=== PATIENT | male | born 1935 | race Caucasian/White ===

== ENCOUNTER 2016-12-21 07:12 | Day surgery (SDC) | payer MEDICARE ==
[2016-12-21] MEDS ORDERED: LIDOCAINE 2% MDV (20MG/ML) 20ML VIAL IV ONE ×2 (10:56→14:00)
[2016-12-21] MEDS ORDERED: TOBRAMYCIN 0.3% OPTH DROP 5 ML BTL OPTH ONE (10:56)
[2016-12-21] MEDS ORDERED: TROPICAMIDE 1% 15ML BTL OP ONE (10:56)
[2016-12-21] MEDS ORDERED: PHENYLEPHRINE HCL 10% OPTH BTL OPTH ONE (10:56)
[2016-12-21] MEDS ORDERED: PREDNISOLONE ACETATE 1% OPTH 10ML BOTTLE OPTH ONE (10:56)
[2016-12-21] MEDS ORDERED: TETRACAINE HCL 0.5% 15 ML OPTH BTL OPTH ONE (10:56)
[2016-12-21] MEDS ORDERED: EPINEPHRINE 1 MG/ML AMPUL SQ ONE (10:56)
[2016-12-21] MEDS ORDERED: DICLOFENAC SODIUM 2.5 ML DROPS OPTH ONE (10:56)
[2016-12-21] MEDS ORDERED: NEOMYCIN/POLY./DEXAM OPTH OINT OPTH ONE (10:56)
[2016-12-21] MEDS ORDERED: PROPOFOL 10 MG/ML VIAL IV ONE (14:00)
--- NOTE | 2016-12-25 15:18 | OP NOTE CHAMES ---
DATE OF PROCEDURE: 12/21/16 PREOPERATIVE DIAGNOSIS: Nuclear sclerotic cataract, left eye. POSTOPERATIVE DIAGNOSIS: Nuclear sclerotic cataract, left eye. OPERATION: Phacoemulsification of cataractous lens with implantation of intraocular lens. LENS IMPLANT USED: AcrySof Model [id number] + 20.0 diopters. COMPLICATIONS: None. PROCEDURE IN DETAIL: Following a retrobulbar and facial block, the patient was prepped and draped in the usual fashion for eye surgery. A lid speculum was placed in the left eye after which a 2.4 mm tunnel wound was placed at the temporal limbus and dissected into clear cornea. A paracentesis was placed at 2 oclock hours to the left and right of the initial incision and the chamber deepened with Viscoelastic. The keratome was then used to enter the anterior chamber after which the continuous circular capsulorrhexis was accomplished without difficulty using a bent needle and a Utrata forceps. Hydrodissection and hydrodelineation of the lens was performed after which the nucleus of the lens was removed using the Phaco handpiece in the [id number] technique. The residual cortical material was irrigated and aspirated from the eye after which the bag and chamber were re-examined. The bag was re-inflated with Viscoelastic and the intraocular lens injected into the capsular bag where it centered well. The Viscoelastic was then copiously irrigated and aspirated from the eye after which the temporal tunnel wound and paracentesis were hydrated and the wounds were examined. They were noted to be watertight. The lid speculum was removed from the eye and the eye patched and shielded. The patient was transferred to the recovery room in satisfactory condition and given an appointment to be reexamined in the clinic later today or as directed by Dr. Gutierrez. Wilver Gutierrez M.D. Date & Time JOB NUMBER: [id number] MTDD
== END 2016-12-21 09:38 | disposition home or self-care (01) ==
LOC: SUR 07:12
PROVIDERS: ATTEND Ophthalmology
DX: H25.12 Age-related nuclear cataract, left eye (principal); I10 Essential (primary) hypertension; E78.00 Pure hypercholesterolemia, unspecified; Z79.01 Long term (current) use of anticoagulants; R56.9 Unspecified convulsions
CPT/HCPCS: J0171

== ENCOUNTER 2017-01-18 11:55 | Inpatient (IN) | payer MEDICARE ==
[2017-01-18] MEDS ORDERED: IPRATROPIUM/ALBUTEROL (0.5MG/3MG) NEB INH ONE (11:56)
--- NOTE | 2017-01-18 12:06 | Emergency Department Record ---
History of Present Illness - General Chief Complaint: Difficulty Breathing Stated Complaint: RICO Time Seen by Provider: 01/18/17 11:56 Source: Patient Mode of Arrival: Ambulatory Limitations: No limitations - History of Present Illness Initial Comments: 81 yo male presents to ED with a CC of difficulty in breathing that began approximately 10 days ago, getting progressively worse. Patient denies previous lung problems, but reports history of DVT and atrial fibrillation ( takes coumadin daily). Patient denies fevers, chills, or recent illness. Patient denies chest pain symptoms. MD Complaint: Shortness of breath Onset/Timin -: Days(s) Severity: Moderate Consistency: Intermittent Improves With: Nothing Worsens With: Nothing Known History Of: Other Associated Symptoms: Denies other symptoms Treatments Prior to Arrival: None - Related Data Home Oxygen Therapy: No Home Medications Medication Instructions Recorded Confirmed Last Taken Albuterol Sulfate [Ventolin Hfa] 1 - 2 puff IH .EVERY 4-6 HOURS PRN 01/18/1701/18/17 Amlodipine Besylate [Norvasc] 10 mg PO DAILY 01/18/17 01/18/17 01/18/17 Carvedilol [Coreg] 12.5 mg PO BID 01/18/17 01/18/17 01/18/17 Gabapentin [Neurontin] 300 mg PO TID 01/18/17 01/18/17 01/18/17 Lamotrigine 25 mg PO BID 01/18/17 01/18/17 01/18/17 Lisinopril 40 mg PO DAILY 01/18/17 01/18/17 01/18/17 Warfarin Sodium [Coumadin] 6 mg PO DAILY 01/18/17 01/18/17 01/17/17 Allergies Allergy/AdvReac Type Severity Reaction Status Date / Time No Known Drug Allergies Allergy Verified 12/14/16 15:54 Review of Systems Constitutional: Denies: Chills, Fever, Malaise, Night sweats Eyes: Denies: Eye discharge, Eye pain ENT: Denies: Congestion, Ear pain, Epistaxis Respiratory: Reports: Dyspnea. Denies: Cough Cardiovascular: Reports: Dyspnea on exertion. Denies: Chest pain Endocrine: Denies: Fatigue, Heat or cold intolerance Gastrointestinal: Denies: Abdominal pain, Nausea, Vomiting Genitourinary: Denies: Incontinence, Retention Musculoskeletal: Denies: Arthralgia, Back pain, Gout, Joint swelling Skin: Denies: Bruising, Change in color Neurological: Denies: Abnormal gait, Confusion, Headache, Seizure Psychiatric: Denies: Anxiety Hematological/Lymphatic: Reports: Blood Clots, Easy bleeding, Easy bruising. 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 Dejesus - NEURO Hx Neuro Disorders: Yes Hx Seizures: Yes (years ago unkown etiology still on meds) Comment:: spot on brain stable for several years - GI Hx GI Disorders: No - Hx Genitourinary Disorders: No - ENDOCRINE Hx Endocrine Disorders: No - MUSCULOSKELETAL Hx Musculoskeletal Disorders: Yes Hx Arthritis: Yes (mild) - PSYCH Hx Psych Problems: No - HEMATOLOGY/ONCOLOGY Hx Hematology/Oncology Disorders: Yes Hx Bruising: Yes (coumadin tx) Hx Clotting Problems: Yes (coumadin tx) Family Medical History Hx Cancer: Brother/Sister Hx Dementia: Mother, Brother/Sister Hx Heart Disease: Father, Brother/Sister Physical Exam - General General Appearance: Alert, Oriented x3, Cooperative, Moderate distress Limitations: No limitations - Head Head exam: Atraumatic, Normocephalic, Normal inspection Head exam detail: negative: Abrasion, Contusion, Santillan's sign, General tenderness, Hematoma, Laceration - Eye Eye exam: Normal appearance. negative: Conjunctival injection, Periorbital swelling, Periorbital tenderness, Scleral icterus - ENT Ear exam: negative: Auricular hematoma, Auricular trauma Nasal Exam: negative: Active bleeding, Discharge, Dried blood, Foreign body Mouth exam: negative: Drooling, Laceration, Muffled voice, Tongue elevation - Neck Neck exam: Normal inspection. negative: Meningismus, Tenderness - Respiratory Respiratory exam: Decreased breath sounds. negative: Rales, Respiratory distress, Rhonchi, Stridor - Cardiovascular Cardiovascular Exam: Bradycardia, Irregular rhythm - GI/Abdominal GI/Abdominal exam: Soft. negative: Rebound, Rigid, Tenderness - Rectal Rectal exam: Deferred - exam: Deferred - Extremities Extremities exam: Other (Prosthesis right BKA). negative: Calf tenderness, Pedal edema - Back Back exam: Denies: CVA tenderness (R), CVA tenderness (L) - Neurological Neurological exam: Alert, Oriented X3 - Psychiatric Psychiatric exam: Normal affect, Normal mood - Skin Skin exam: Normal color. negative: Abrasion Type of lesion: negative: abrasion Course - Reevaluation(s) Reevaluation #1: 01/18/17 12:29 EKG: Atrial Fibrillation 51 IVCD, indeterminate axis Nonspecific ST-T wave changes Reevaluation #2: 01/18/17 12:54 Labs reviewed, BNP 2200, labs are otherwise grossly unremarkable for an acute process. Patient reports improvement in his breathing symptoms. Reevaluation #3: 01/18/17 13:17 CXR: Pleural effusions with retro-cardiac air-space disease present. Case was discussed with Jillian RIOS, will administer Lasix while in ED, hold antibiotics for now. Jillian will accept the admission at this time. 01/18/17 13:29 Medical Decision Making - Lab Data Result diagrams: 01/18/17 12:15 01/18/17 12:15 Disposition Disposition: Admit Clinical Impression: CHF (congestive heart failure) Qualifiers: Congestive heart failure type: unspecified congestive heart failure type Congestive heart failure chronicity: acute on chronic Qualified Code(s): I50.9 - Heart failure, unspecified Pneumonia Qualifiers: Pneumonia type: due to unspecified organism Laterality: bilateral Lung location : unspecified part of lung Qualified Code(s): J18.9 - Pneumonia, unspecified organism Atrial fibrillation Qualifiers: Atrial fibrillation type: chronic Qualified Code(s): I48.2 - Chronic atrial fibrillation Disposition: Still a Patient at [facility] Decision to Admit: Admit from ER Decision to Admit Date: 01/18/17 Decision to Admit Time: 13:19 Condition: (2) Stable Forms: Patient Portal Access Time of Disposition: 13:19
[2017-01-18 12:19] LABS: BASO % 0.1 % (0-6); EOS % 2.4 % (0-6); GRAN % 74.6 % (47-80); HEMATOCRIT 36.2 % (42.0-52.0); HEMOGLOBIN 12.1 gm/dl (14.0-18.0); LYMPH % 12.9 % (16-45); MEAN CELL VOLUME 92.8 fl (81-97); MEAN CORPUSCULAR HGB CONC 33.4 g/dl (32-36); MEAN PLATELET VOLUME 10.2 fl (7.4-10.4); PLATELET COUNT 187 K/uL (130-400); RED CELL DISTRIBUTION WIDTH 13.9 % (11.5-14.5); WHITE BLOOD COUNT W/O DIFF 8.3 K/uL (4.2-12.2)
[2017-01-18 12:33] LABS: ALB/GLOB RATIO 1.1 (1.1-1.8); ALBUMIN 3.8 gm/dL (3.5-5.0); ALKALINE PHOSPHATASE 97 U/L (38-126); ALT/SGPT 22 U/L (21-72); AST/SGOT 18 U/L (17-59); BILIRUBIN,TOTAL 0.53 mg/dL (0.2-1.3); BLOOD UREA NITROGEN 21 mg/dL (9-20); CREATININE 1.3 mg/dL (0.66-1.25); EST GLOMERULAR FILTRATION RATE 56 ml/min; GLUCOSE,RANDOM 104 mg/dL (70-110); INR 2.84; PROTHROMBIN TIME (PATIENT) 32.1 SECONDS (9.5-12.1); TOTAL PROTEIN 7.2 gm/dL (6.3-8.2)
[2017-01-18 12:45] LABS: TROPONIN I < 0.012 ng/mL (0.00-0.034)
[2017-01-18] MEDS ORDERED: METHYLPREDNISOLONE PF 125MG/VIAL IVP ONE (13:09)
[2017-01-18] MEDS ORDERED: FUROSEMIDE IV 40MG/4ML VIAL IVP ONE (13:30)
[2017-01-18] MEDS ORDERED: METHYLPREDNISOLONE PF 125MG/VIAL IVP SCH (14:35)
[2017-01-18] MEDS ORDERED: ALBUTEROL SULFATE (0.083%) 2.5 MG/3 ML NEB INH PRN (14:35)
[2017-01-18] MEDS ORDERED: GABAPENTIN 300 MG CAPSULE PO SCH ×2 (16:00)
[2017-01-18] MEDS: WARFARIN 1 MG TABLET PO SCH (18:14)
[2017-01-18] MEDS: WARFARIN 5 MG TAB PO SCH (18:15)
[2017-01-18] MEDS: GABAPENTIN 300 MG CAPSULE PO SCH (21:12)
[2017-01-18] MEDS: LAMOTRIGINE 100 MG TABLET PO SCH (21:12)
[2017-01-18] MEDS: CARVEDILOL 12.5 MG TABLET PO SCH (21:12)
[2017-01-18] MEDS ORDERED: CARVEDILOL 12.5 MG TABLET PO SCH (22:00)
[2017-01-19 06:50] LABS: HEMOGLOBIN 11.8 gm/dl (14.0-18.0); LYMPH % 8.4 % (16-45); MEAN CELL VOLUME 91.9 fl (81-97); MEAN CORPUSCULAR HGB CONC 33.7 g/dl (32-36); MEAN PLATELET VOLUME 10.6 fl (7.4-10.4); MONO % 3.2 % (0-9); PLATELET COUNT 185 K/uL (130-400); RED BLOOD COUNT 3.81 M/uL (4.40-5.70); RED CELL DISTRIBUTION WIDTH 13.9 % (11.5-14.5)
[2017-01-19 06:57] LABS: MEAN CORPUSCULAR HEMOGLOBIN 30.9 pg (27-33)
[2017-01-19 07:07] LABS: ALBUMIN 3.5 gm/dL (3.5-5.0); ALKALINE PHOSPHATASE 87 U/L (38-126); ALT/SGPT 22 U/L (21-72); AST/SGOT 16 U/L (17-59); BILIRUBIN,TOTAL 0.52 mg/dL (0.2-1.3); BLOOD UREA NITROGEN 23 mg/dL (9-20); CARBON DIOXIDE 24.5 mmol/L (22-30); CREATININE 1.2 mg/dL (0.66-1.25); EST GLOMERULAR FILTRATION RATE > 60 ml/min; GLUCOSE,RANDOM 140 mg/dL (70-110); TOTAL PROTEIN 6.9 gm/dL (6.3-8.2)
[2017-01-19 07:11] LABS: ANION GAP 8.5 (7-16)
--- NOTE | 2017-01-19 07:30 | History & Physical ---
History of Present Illness - Date of Service Date of Service for History & Physical: 01/19/17 - History of Present Illness Admitting Diagnosis: Acute CHF. ? CAP. Atrial Fibrillation with bradycardia History of Present Illness: 81yo male with CC of difficulty in breathing. 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 Patient presented to the ED after several days of progressive worsening of his shortness of breath. States he had been getting progressively short of breath with activity over the past few months. Was seen by his field worker last week and had echo and nuclear stress tests done. He was found to be in atrial fibrillation at that appointment with ventricular rates around 44bpm. He had had previous cardioversion many years ago. According to progress notes, the plan was to continue rate control with current medication and retirement anticoagulation with coumadin and if in persistent afib he would undergo another cardioversion. While in the ED, patient was found to have oxygen saturation of 88% on room air. His EKG showed afib wtih rates of 51 and nonspecific intraventricular block. This was similar to findings from previous EKG done at cardiologists office. He had CXR which showed new, bilateral pleural effusions with pulmonary edema suggestive of mild CHF. Additionally noted to have retrocardiac airspace disease that was likely atelectasis. His WBC count was within normal and he was afebrile. oxygen improved with 2L via NC and he was admitted for new onset CHF. 01/19/17- Patient states he is feeling a little less short of breath while on oxygen via NC. He says he did urinate quite a bit after receiving 40mg of lasix in the ED. He denies any chest pain, light-headedness, fatigue, confusion, headache or weakness. He states he has never been tested for COPD but did smoke a pack a day for at least 35 years. He denies any recent fevers, chills, night sweats. Says he has been coughing some but only at night. He says during the day he has not had any cough or chest congestion. No one around him has been sick either. he denies lower extremity edema in the left and has BKA on the right. pcp: [facility] cardiology: john Dejesus cardiology Travel Screening - Travel/Exposure Within Last 30 Days Have you traveled within the last 30 days?: No - Travel/Exposure Within Last Year Have you traveled outside the [place] in the last year?: No - Additonal Travel Details Have you been exposed to anyone with a communicable illness?: No - Travel Symptoms Symptom Screening: None Review of Systems Constitutional: Denies: Chills, Fever, Malaise, Night sweats Eyes: Denies: Eye discharge, Eye pain ENT: Denies: Congestion, Ear pain, Epistaxis Respiratory: Reports: Dyspnea. Denies: Cough Cardiovascular: Reports: Dyspnea on exertion. Denies: Chest pain Endocrine: Denies: Fatigue, Heat or cold intolerance Gastrointestinal: Denies: Abdominal pain, Nausea, Vomiting Genitourinary: Denies: Incontinence, Retention Musculoskeletal: Denies: Arthralgia, Back pain, Gout, Joint swelling Skin: Denies: Bruising, Change in color Neurological: Denies: Abnormal gait, Confusion, Headache, Seizure Psychiatric: Denies: Anxiety Hematological/Lymphatic: Reports: Blood Clots, Easy bleeding, Easy bruising. 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 Dejesus - NEURO Hx Neuro Disorders: Yes Hx Seizures: Yes (years ago unkown etiology still on meds) Comment:: spot on brain stable for several years - GI Hx GI Disorders: No - Hx Genitourinary Disorders: No - ENDOCRINE Hx Endocrine Disorders: No - MUSCULOSKELETAL Hx Musculoskeletal Disorders: Yes Hx Arthritis: Yes (mild) - PSYCH Hx Psych Problems: No - HEMATOLOGY/ONCOLOGY Hx Hematology/Oncology Disorders: Yes Hx Bruising: Yes (coumadin tx) Hx Clotting Problems: Yes (coumadin tx) Family Medical History Any Significant Family History?: No Hx Cancer: Brother/Sister Hx Dementia: Mother, Brother/Sister Hx Heart Disease: Father, Brother/Sister H&P Meds/Allergies - Allergies Allergies: Allergies Allergy/AdvReac Type Severity Reaction Status Date / Time No Known Drug Allergies Allergy Verified 12/14/16 15:54 - Home Medications Home Medications Medication Instructions Recorded Confirmed Last Taken Albuterol Sulfate [Ventolin Hfa] 1 - 2 puff IH .EVERY 4-6 HOURS PRN 01/18/1701/18/17 Amlodipine Besylate [Norvasc] 10 mg PO DAILY 01/18/17 01/18/17 01/18/17 Aspirin [Aspirin EC] 81 mg PO DAILY 01/18/17 01/18/17 Unknown Carvedilol [Carvedilol] 25 mg PO BID 01/18/17 01/18/17 Unknown Gabapentin [Neurontin] 900 mg PO BID 01/18/17 01/18/17 01/18/17 Lamotrigine 25 mg PO BID 01/18/17 01/18/17 01/18/17 Lisinopril 40 mg PO DAILY 01/18/17 01/18/17 01/18/17 Warfarin Sodium [Coumadin] 6 mg PO 1800 01/18/17 01/18/17 01/17/17 - Active Medications Active Medications: Current Medications Albuterol Sulfate () 2.5 mg INH RESP.Q2H PRN PRN Reason: DIFFICULTY IN BREATHING Amlodipine Besylate (Norvasc) 10 mg PO DAILY [facility] Aspirin (Ecotrin (Ec)) 81 mg PO DAILY [facility] Carvedilol (Coreg) 25 mg PO BID [facility] Last Admin: 01/18/17 21:12 Dose: 25 mg Gabapentin (Neurontin) 900 mg PO BID [facility] Last Admin: 01/18/17 21:12 Dose: 900 mg Lamotrigine (Lamictal) 25 mg PO BID [facility] Last Admin: 01/18/17 21:12 Dose: 25 mg Lisinopril (Zestril) 40 mg PO DAILY [facility] Warfarin Sodium (Coumadin) 5 mg PO 1800 [facility] Last Admin: 01/18/17 18:15 Dose: 5 mg Warfarin Sodium (Coumadin) 1 mg PO 1800 [facility] Last Admin: 01/18/17 18:14 Dose: 1 mg Physical Exam - Vital Signs Vital Signs: Vital Signs - Last 24 Hrs Temp Pulse Resp BP Pulse Ox 01/19/17 04:00 98.2 F 66 20 133/74 92 L 01/18/17 23:55 98.3 F 61 18 134/68 95 01/18/17 20:00 98.7 F 61 20 130/65 92 L 01/18/17 16:35 53 L 16 113/54 93 L 01/18/17 14:20 51 L 20 01/18/17 14:15 98.0 F 54 L 20 127/64 93 L - General General Appearance: Alert, Oriented x3, Cooperative, No acute distress Limitations: No limitations - Head Head exam: Atraumatic, Normocephalic, Normal inspection Head exam detail: negative: Abrasion, Contusion, Santillan's sign, General tenderness, Hematoma, Laceration - Eye Eye exam: Normal appearance. negative: Conjunctival injection, Periorbital swelling, Periorbital tenderness, Scleral icterus - ENT Ear exam: negative: Auricular hematoma, Auricular trauma Nasal Exam: negative: Active bleeding, Discharge, Dried blood, Foreign body Mouth exam: negative: Drooling, Laceration, Muffled voice, Tongue elevation - Neck Neck exam: Normal inspection. negative: Meningismus, Tenderness - Respiratory Respiratory exam: Decreased breath sounds (throughout; no focal findings). negative: Rales, Respiratory distress, Rhonchi, Stridor - Cardiovascular Cardiovascular Exam: Bradycardia, Irregular rhythm - GI/Abdominal GI/Abdominal exam: Soft. negative: Rebound, Rigid, Tenderness - Rectal Rectal exam: Deferred - exam: Deferred - Extremities Extremities exam: Other (Prosthesis right BKA). negative: Calf tenderness, Pedal edema - Back Back exam: Denies: CVA tenderness (R), CVA tenderness (L) - Neurological Neurological exam: Alert, Oriented X3 - Psychiatric Psychiatric exam: Normal affect, Normal mood - Skin Skin exam: Normal color. negative: Abrasion Type of lesion: negative: abrasion Results - Labs Result Diagrams: 01/19/17 06:27 01/19/17 06:27 Labs Last 24 Hours: Laboratory Results - last 24 hr 01/19/17 01/19/17 06:27 06:27 WBC 6.0 RBC 3.81 L Hgb 11.8 L Hct 35.0 L MCV 91.9 MCH 30.9 MCHC 33.7 RDW 13.9 Plt Count 185 MPV 10.6 H Neutrophils % 89.0 H Band Neutrophils % 0.0 Lymphocytes % 8.4 L Monocytes % 3.2 Eosinophils % 0.0 Basophils % 0.0 Lymphocytes 8.0 L Monocytes 3.0 Basophils 0.0 Eosinophil Count 0.0 Sodium 132 L Potassium 3.7 Chloride 99 Carbon Dioxide 24.5 Anion Gap 8.5 BUN 23 H Creatinine 1.2 Estimated GFR > 60 Random Glucose 140 H Calcium 8.6 Total Bilirubin 0.52 AST 16 L ALT 22 Alkaline Phosphatase 87 Total Protein 6.9 Albumin 3.5 Globulin 3.4 Albumin/Globulin Ratio 1.0 L - Imaging and Cardiology Chest x-ray Status: Report reviewed VTE H&P Assessment - Risk for VTE Risk for VTE: Yes Risk Level: High Risk Assessment Date: 01/19/17 Risk Assessment Time: 21:25 VTE Orders Placed or Will Be Placed: Yes Plan - Inpatient Certification Inpatient Certification: risk factors: age, new onset CHF, atrial fibrillation, CAD, bradycardia, history of DVT estimated length of stay: 72-96H services needed: IV diuretics, diagnostic imaging, medical management 01/19/17 21:25 - Detailed Diagnosis and Plan (1) CHF (congestive heart failure) Current Visit: Yes Status: Acute Qualifiers: Congestive heart failure type: unspecified congestive heart failure type Congestive heart failure chronicity: acute on chronic Qualified Code(s): I50.9 - Heart failure, unspecified Base Code: I50.9 - HEART FAILURE, UNSPECIFIED Comment: 01/19/17- Patient had recent echo with EF of 55-60% done through his field worker's office. CXR here shows bilateral pulmonary edema suggestive of mild CHF fluid overload. BNP 2200. currently bradycardic on BB therapy and is on ACEI. -repeat echo -obtain weight daily -contnue diuresis with lasix 20mg IV BID. not currently on diuretic therapy at home. -fluid restriction 2000cc daily -low sodium diet -vitals q8H -labs qam (2) Shortness of breath Current Visit: Yes Status: Acute Base Code: R06.02 - SHORTNESS OF BREATH Comment: 01/19/17- Improved somewhat with lasix 40mg IV and supplemental oxygen via NC at 2L. CXR showed findings consistent with new onset mild CHF and retrocardiac airspace disease likely atelectasis. Patient has never been tested for COPD but has likely diagnosis with 35 pack year history. dyspnea has been progressive over past few months especially with exertion. He just underwent nuclear stress and echo [facility]ology this past week. Feel his SOB is likely 2 /2 fluid overload. other considerations include COPD exacerbation and early CAP. pulmonary embolus less likely as he has been therapeutic on coumadin -will continue diuresis with lasix 20mg IV BID. -monitor renal function with loop diuretics -will consider repeat imaging in 1-2 days if no improvement to reevaluate airspace disease as this could also be related to early CAP. Currently no other clinic symptoms of CAP. -continue supplemental oxygen at 2L to keep sats >92% (3) Atrial fibrillation Current Visit: Yes Status: Acute Qualifiers: Atrial fibrillation type: chronic Qualified Code(s): I48.2 - Chronic atrial fibrillation Base Code: I48.91 - UNSPECIFIED ATRIAL FIBRILLATION Comment: 01/19/17- chronic atrial fibrillation with bradycardia. Patient is asymptomatic. reviewed recent notes and EKG from cardiology and no acute changes. -will hold co-reg with bradycardia in the 30-40bpm -continue cardiac monitoring -patient therapeutic on coumadin (4) DVT prophylaxis Current Visit: Yes Status: Acute Base Code: [id number] - Comment: 01/19/17- xuan is high risk with history of extensive DVT resulting in right BKA and persistent afib. He is currently therapeutic on coumadin -edmund continue home coumadin dosing (5) Full code status Current Visit: Yes Status: Acute Base Code: Z78.9 - OTHER SPECIFIED HEALTH STATUS Comment: 01/19/17- patient is full code
[2017-01-19 07:56] LABS: INR 2.43; PROTHROMBIN TIME (PATIENT) 27.5 SECONDS (9.5-12.1)
[2017-01-19] MEDS: CARVEDILOL 12.5 MG TABLET PO SCH (09:35)
[2017-01-19] MEDS: ASPIRIN 81 MG TABEC PO SCH (09:36)
[2017-01-19] MEDS: LAMOTRIGINE 100 MG TABLET PO SCH ×2 (09:36→22:51)
[2017-01-19] MEDS: GABAPENTIN 300 MG CAPSULE PO SCH ×2 (09:37→22:51)
[2017-01-19] MEDS: AMLODIPINE BESYLATE 5MG TAB PO SCH (09:38)
[2017-01-19] MEDS: LISINOPRIL 20 MG TABLET PO SCH (09:39)
[2017-01-19] MEDS ORDERED: ASPIRIN 325 MG TAB ENTERIC-COATED PO SCH (10:00)
[2017-01-19] MEDS ORDERED: FUROSEMIDE IV 20MG/2ML VIAL IVP ONE (13:24)
[2017-01-19] MEDS: WARFARIN 1 MG TABLET PO SCH ×2 (16:32→17:57)
[2017-01-19] MEDS: WARFARIN 5 MG TAB PO SCH ×2 (16:33→17:57)
[2017-01-19] MEDS ORDERED: CARVEDILOL 12.5 MG TABLET PO SCH (22:00)
[2017-01-20 06:21] LABS: BASO % 0.1 % (0-6); EOS % 0.4 % (0-6); GRAN % 75.1 % (47-80); HEMATOCRIT 31.6 % (42.0-52.0); HEMOGLOBIN 10.8 gm/dl (14.0-18.0); LYMPH % 14.8 % (16-45); MEAN CELL VOLUME 92.7 fl (81-97); MEAN CORPUSCULAR HGB CONC 34.2 g/dl (32-36); MEAN PLATELET VOLUME 10.9 fl (7.4-10.4); MONO % 9.6 % (0-9); PLATELET COUNT 165 K/uL (130-400); RED BLOOD COUNT 3.41 M/uL (4.40-5.70); RED CELL DISTRIBUTION WIDTH 13.9 % (11.5-14.5); WHITE BLOOD COUNT W/O DIFF 11.4 K/uL (4.2-12.2)
[2017-01-20 06:23] LABS: MEAN CORPUSCULAR HEMOGLOBIN 31.6 pg (27-33)
[2017-01-20 06:32] LABS: ALBUMIN 3.2 gm/dL (3.5-5.0); ANION GAP 6.8 (7-16); BILIRUBIN,TOTAL 0.36 mg/dL (0.2-1.3); CARBON DIOXIDE 24.2 mmol/L (22-30); CREATININE 1.4 mg/dL (0.66-1.25); TOTAL PROTEIN 6.3 gm/dL (6.3-8.2)
--- NOTE | 2017-01-20 10:21 | RADIOLOGY REPORT ---
DATE: 01/18/2017 at 12:56. EXAM: TWO-VIEW CHEST. HISTORY: Acute shortness of breath. COMPARISON: Chest x-ray dated 03/06/2015. TECHNIQUE: Two views of the chest were obtained. FINDINGS: There is prominence and ill definition of the pulmonary vascular markings consistent with mild pulmonary vascular congestion. Blunting of the costophrenic angles consistent with small pleural effusions. Minor retrocardiac opacity. Cardiac silhouette, diaphragm, and osseus structures are unremarkable. IMPRESSION: SMALL PLEURAL EFFUSIONS WITH PROBABLE NEW MILD INTERSTITIAL PULMONARY EDEMA. MILD RETROCARDIAC ATELECTATIC CHANGE. JOB NUMBER: [id number] MTDD
[2017-01-20] MEDS: LAMOTRIGINE 100 MG TABLET PO SCH ×2 (10:51→21:18)
[2017-01-20] MEDS: ASPIRIN 81 MG TABEC PO SCH (10:51)
[2017-01-20] MEDS: FUROSEMIDE IV 20MG/2ML VIAL IVP SCH ×2 (10:53→17:02)
[2017-01-20] MEDS: GABAPENTIN 300 MG CAPSULE PO SCH ×2 (10:53→21:18)
--- NOTE | 2017-01-20 11:40 | Physician Progress Note ---
Subjective - Date Date of Physician Progress Note: 01/20/17 - Subjective Subjective Comment: 01/20/17- Patient states he is feeling about the same as yesterday. Having intermittent shortness of breath worse with exertion. He says he has been urinating frequently with the lasix. No swelling in the left lower extremity. He does admit he is coughing a little more today and has brought some "phlegm" up that is thick and yellow. Denies fever but says he has just felt fatigued for the past few months. No chest pain, light-headedness or dizziness. Objective - Vital Signs Vital Signs: Vital Signs - Last 24 Hrs Temp Pulse Resp BP Pulse Ox 01/20/17 09:40 51 L 20 138/69 95 01/20/17 09:00 51 L 20 01/20/17 06:00 98.0 F 42 L 18 122/64 94 L 01/20/17 01:40 98.0 F 40 L 16 106/56 90 L 01/19/17 23:26 98.0 F 43 L 16 111/61 93 L 01/19/17 21:00 35 L 16 01/19/17 20:00 98.9 F 48 L 16 102/63 94 L 01/19/17 16:00 98.0 F 51 L 18 126/70 97 01/19/17 12:00 98.1 F 52 L 18 135/68 96 - General General Appearance: Alert, Oriented x3, Cooperative, No acute distress Limitations: No limitations - Head Head exam: Atraumatic, Normocephalic, Normal inspection Head exam detail: negative: Abrasion, Contusion, Santillan's sign, General tenderness, Hematoma, Laceration - Eye Eye exam: Normal appearance. negative: Conjunctival injection, Periorbital swelling, Periorbital tenderness, Scleral icterus - ENT Ear exam: negative: Auricular hematoma, Auricular trauma Nasal Exam: negative: Active bleeding, Discharge, Dried blood, Foreign body Mouth exam: negative: Drooling, Laceration, Muffled voice, Tongue elevation - Neck Neck exam: Normal inspection. negative: Meningismus, Tenderness - Respiratory Respiratory exam: Decreased breath sounds (throughout; no focal findings). negative: Rales, Respiratory distress, Rhonchi, Stridor - Cardiovascular Cardiovascular Exam: Bradycardia, Irregular rhythm - GI/Abdominal GI/Abdominal exam: Soft. negative: Rebound, Rigid, Tenderness - Rectal Rectal exam: Deferred - exam: Deferred - Extremities Extremities exam: Other (Prosthesis right BKA). negative: Calf tenderness, Pedal edema - Back Back exam: Denies: CVA tenderness (R), CVA tenderness (L) - Neurological Neurological exam: Alert, Oriented X3 - Psychiatric Psychiatric exam: Normal affect, Normal mood - Skin Skin exam: Normal color. negative: Abrasion Type of lesion: negative: abrasion Assessment and Plan - Assessment and Plan (1) Shortness of breath Current Visit: Yes Status: Acute Base Code: R06.02 - SHORTNESS OF BREATH Comment: 01/20/17- symptomatically not improved despite continued diuresis and improvement on chest XR. CXR on admission showed findings consistent with new onset mild CHF and retrocardiac airspace disease likely atelectasis. Patient has never been tested for COPD but has likely diagnosis with 35 pack year history. dyspnea has been progressive over past few months especially with exertion. He just underwent nuclear stress and echo [facility] cardiology this past week. Discussed case with Dr. Li. 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 initial CXR here showed bilateral pulmonary edema suggestive of mild CHF fluid overload. Repeat CXR today shows improvement in bilateral pleural effusions. BNP 2200 at admission however also has CKD stage 3. currently bradycardic but improved with holding co-reg and is on ACEI. -obtain weight daily -will hold off on further diuresis with fluid resolution on CXR today -fluid restriction 2000cc daily -low sodium diet -vitals q8H -labs qam (3) Atrial fibrillation Current Visit: Yes Status: Acute Qualifiers: Atrial fibrillation type: chronic Qualified Code(s): I48.2 - Chronic atrial fibrillation Base Code: I48.91 - UNSPECIFIED ATRIAL FIBRILLATION Comment: 01/20/17- chronic atrial fibrillation with bradycardia. Patient is asymptomatic. reviewed recent notes and EKG from cardiology and no acute changes. -will continue to hold co-reg with bradycardia improved. may consider adding back at lower dose. 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 He is currently therapeutic on coumadin -edmund continue home coumadin dosing (5) Full code status Current Visit: Yes Status: Acute Base Code: Z78.9 - OTHER SPECIFIED HEALTH STATUS Comment: 01/20/17- patient is full code Results - Labs Result Diagrams: 01/20/17 05:55 01/20/17 05:55 Labs Last 24 Hours: Laboratory Results - last 24 hr 01/20/17 01/20/17 05:55 05:55 WBC 11.4 RBC 3.41 L Hgb 10.8 L Hct 31.6 L MCV 92.7 MCH 31.6 MCHC 34.2 RDW 13.9 Plt Count 165 MPV 10.9 H Gran % 75.1 Lymphocytes % 14.8 L Monocytes % 9.6 H Eosinophils % 0.4 Basophils % 0.1 Sodium 133 L Potassium 3.7 Chloride 102 Carbon Dioxide 24.2 Anion Gap 6.8 L BUN 32 H Creatinine 1.4 H Estimated GFR 52 Random Glucose 98 Calcium 8.5 Total Bilirubin 0.36 AST 13 L ALT 20 L Alkaline Phosphatase 74 Total Protein 6.3 Albumin 3.2 L Globulin 3.1 Albumin/Globulin Ratio 1.0 L DVT/PE Assessment - Risk for VTE Risk for VTE: No Risk Level: High Risk Assessment Date: 01/19/17 Risk Assessment Time: 21:25 VTE Orders Placed or Will Be Placed: Yes - Active Medicaitons Current Medications: Current Medications Albuterol Sulfate () 2.5 mg INH RESP.Q2H PRN PRN Reason: DIFFICULTY IN BREATHING Last Admin: 01/19/17 08:43 Dose: 2.5 mg Amlodipine Besylate (Norvasc) 10 mg PO DAILY [facility] Last Admin: 01/19/17 09:38 Dose: 10 mg Aspirin (Ecotrin (Ec)) 81 mg PO DAILY [facility] Last Admin: 01/20/17 10:51 Dose: 81 mg Carvedilol (Coreg) 12.5 mg PO BID [facility] Furosemide (Lasix Iv) 20 mg IVP BIDDIUR [facility] Last Admin: 01/20/17 10:53 Dose: 20 mg Gabapentin (Neurontin) 900 mg PO BID [facility] Last Admin: 01/20/17 10:53 Dose: 900 mg Lamotrigine (Lamictal) 25 mg PO BID [facility] Last Admin: 01/20/17 10:51 Dose: 25 mg Lisinopril (Zestril) 40 mg PO DAILY [facility] Last Admin: 01/19/17 09:39 Dose: 40 mg Warfarin Sodium (Coumadin) 5 mg PO 1800 [facility] Last Admin: 01/19/17 17:57 Dose: Not Given Warfarin Sodium (Coumadin) 1 mg PO 1800 [facility] Last Admin: 01/19/17 17:57 Dose: Not Given AMI Plan - Labs Result Diagrams: 01/20/17 05:55 01/20/17 05:55
[2017-01-20] MEDS: LISINOPRIL 20 MG TABLET PO SCH (11:57)
[2017-01-20] MEDS: AMLODIPINE BESYLATE 5MG TAB PO SCH (11:58)
[2017-01-20] MEDS: WARFARIN 5 MG TAB PO SCH (17:02)
[2017-01-20] MEDS: WARFARIN 1 MG TABLET PO SCH (17:03)
[2017-01-20 18:06] LABS: ANION GAP 7.7 (7-16); BLOOD UREA NITROGEN 28 mg/dL (9-20); CARBON DIOXIDE 27.3 mmol/L (22-30); CREATININE 1.2 mg/dL (0.66-1.25); EST GLOMERULAR FILTRATION RATE > 60 ml/min; GLUCOSE,RANDOM 97 mg/dL (70-110)
[2017-01-20 18:07] LABS: INR 2.9; PROTHROMBIN TIME (PATIENT) 32.8 SECONDS (9.5-12.1)
[2017-01-20] MEDS: LEVOFLOXACIN/D5W 750 MG/150 ML BAG IVPB SCH (19:15)
[2017-01-21 06:19] LABS: ALBUMIN 3.1 gm/dL (3.5-5.0); ALKALINE PHOSPHATASE 68 U/L (38-126); ALT/SGPT 21 U/L (21-72); ANION GAP 5.6 (7-16); AST/SGOT 13 U/L (17-59); BILIRUBIN,TOTAL 0.41 mg/dL (0.2-1.3); BLOOD UREA NITROGEN 23 mg/dL (9-20); CARBON DIOXIDE 28.4 mmol/L (22-30); CREATININE 1.2 mg/dL (0.66-1.25); EST GLOMERULAR FILTRATION RATE > 60 ml/min; GLUCOSE,RANDOM 86 mg/dL (70-110); TOTAL PROTEIN 6.3 gm/dL (6.3-8.2)
[2017-01-21 06:21] LABS: BASO % 0.1 % (0-6); EOS % 1.5 % (0-6); GRAN % 74.4 % (47-80); HEMATOCRIT 33.1 % (42.0-52.0); LYMPH % 12.4 % (16-45); MEAN CELL VOLUME 94.3 fl (81-97); MEAN CORPUSCULAR HEMOGLOBIN 31.3 pg (27-33); MEAN CORPUSCULAR HGB CONC 33.2 g/dl (32-36); MEAN PLATELET VOLUME 10.8 fl (7.4-10.4); MONO % 11.6 % (0-9); PLATELET COUNT 189 K/uL (130-400); RED BLOOD COUNT 3.51 M/uL (4.40-5.70); RED CELL DISTRIBUTION WIDTH 14.1 % (11.5-14.5); WHITE BLOOD COUNT W/O DIFF 10.3 K/uL (4.2-12.2)
--- NOTE | 2017-01-21 09:18 | Physician Progress Note ---
Subjective - Date Date of Physician Progress Note: 01/21/17 - Subjective Subjective Comment: 01/21/17- Patient states he is feeling a little better than yesterday. Says he is not feeling as short of breath. Respiratory decreased his supplemental oxygen to 1L and he has continued to do well at that rate. He did take a walk down the [place] at 2L and oxygen saturation remained 97% throughout. Says he was able to take a shower without worsening SOB. he is still coughing up some thick , yellow sputum. he denies fevers, chills, chest pain. His appetite has been good and energy level has improved. Objective - Vital Signs Vital Signs: Vital Signs - Last 24 Hrs Temp Pulse Resp BP Pulse Ox 01/21/17 05:00 98.7 F 47 L 20 122/73 94 L 01/21/17 00:21 98.0 F 45 L 18 126/63 94 L 01/20/17 20:00 98.2 F 50 L 20 120/66 96 01/20/17 18:00 97.8 F 66 18 129/70 97 01/20/17 14:00 97.9 F 59 L 20 121/64 95 01/20/17 09:40 51 L 20 138/69 95 - General General Appearance: Alert, Oriented x3, Cooperative, No acute distress Limitations: No limitations - Head Head exam: Atraumatic, Normocephalic, Normal inspection Head exam detail: negative: Abrasion, Contusion, Santillan's sign, General tenderness, Hematoma, Laceration - Eye Eye exam: Normal appearance. negative: Conjunctival injection, Periorbital swelling, Periorbital tenderness, Scleral icterus - ENT Ear exam: negative: Auricular hematoma, Auricular trauma Nasal Exam: negative: Active bleeding, Discharge, Dried blood, Foreign body Mouth exam: negative: Drooling, Laceration, Muffled voice, Tongue elevation - Neck Neck exam: Normal inspection. negative: Meningismus, Tenderness - Respiratory Respiratory exam: Decreased breath sounds (throughout; no focal findings). negative: Rales, Respiratory distress, Rhonchi, Stridor - Cardiovascular Cardiovascular Exam: Bradycardia, Irregular rhythm - GI/Abdominal GI/Abdominal exam: Soft. negative: Rebound, Rigid, Tenderness - Rectal Rectal exam: Deferred - exam: Deferred - Extremities Extremities exam: Other (Prosthesis right BKA). negative: Calf tenderness, Pedal edema - Back Back exam: Denies: CVA tenderness (R), CVA tenderness (L) - Neurological Neurological exam: Alert, Oriented X3 - Psychiatric Psychiatric exam: Normal affect, Normal mood - Skin Skin exam: Normal color. negative: Abrasion Type of lesion: negative: abrasion Assessment and Plan - Assessment and Plan (1) Shortness of breath Current Visit: Yes Status: Acute Base Code: R06.02 - SHORTNESS OF BREATH Comment: 01/21/17- symptomatically improved from yesterday with decreased shortness of breath. CTA done yesterday showed no PE, aneurysm, dissection. It did show moderate b/l pleural effusiuons with atelectasis at the bases along with a 1.8cm focal opacity in the left mid lung which could reflect mass, nodule or focal inflammatory nodule. There was mild hilar and mediastinal LAD. Patient was started on empiric therapy for CAP PNA vs copd exacerbation with levaquin 750mg q24H based on these results. WBC count remains wnl and patient is afebrile. -continue levaquin 750mg IV daily. -will need follow up imaging in 2-3 weeks to assess for clearing of opacity. other considerations include nodule, lung cancer. I did tour counselor patient x10 minutes on these imgaging findings and he understands the importance of close follow up wtih his PCP. -continue weaning off supplemental oxygen per respiratory therapy -blood cultures still pending -add mucinex 1200mg po bid -continue incentive spirometry -vitals q8H -labs qam. 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 CTA shows moderate b/l pleural effusions with atelectasis at the bases. BNP 2200 at admission however also has CKD stage 3. Weight down from 163 to 156 with good urine output. bradycardia improved since holding co-reg. -restart co-reg 3.125mg po bid and continue to monitor heart rate. continue lisinopril 40mg daily -obtain weight daily -transition lasix to 20mg po daily -fluid restriction 2000cc daily -low sodium diet -vitals q8H -labs qam (3) Atrial fibrillation Current Visit: Yes Status: Acute Qualifiers: Atrial fibrillation type: chronic Qualified Code(s): I48.2 - Chronic atrial fibrillation Base Code: I48.91 - UNSPECIFIED ATRIAL FIBRILLATION Comment: 01/21/17- chronic atrial fibrillation with bradycardia. Patient is asymptomatic. reviewed recent notes and EKG from cardiology and no acute changes. -will restart co-reg at 3.125mg po bid with heart rate improved to 60-70bpm. 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 He is currently therapeutic on coumadin -edmund continue home coumadin dosing (5) Full code status Current Visit: Yes Status: Acute Base Code: Z78.9 - OTHER SPECIFIED HEALTH STATUS Comment: 01/21/17- patient is full code Results - Labs Result Diagrams: 01/21/17 05:40 01/21/17 05:40 Labs Last 24 Hours: Laboratory Results - last 24 hr 01/20/17 01/20/17 01/21/17 17:50 17:50 05:40 WBC 10.3 RBC 3.51 L Hgb 11.0 L Hct 33.1 L MCV 94.3 MCH 31.3 MCHC 33.2 RDW 14.1 Plt Count 189 MPV 10.8 H Gran % 74.4 Lymphocytes % 12.4 L Monocytes % 11.6 H Eosinophils % 1.5 Basophils % 0.1 PT 32.8 H INR 2.90 Sodium 136 Potassium 4.0 Chloride 101 Carbon Dioxide 27.3 Anion Gap 7.7 BUN 28 H Creatinine 1.2 Estimated GFR > 60 Random Glucose 97 Calcium 8.9 Total Bilirubin AST ALT Alkaline Phosphatase Total Protein Albumin Globulin Albumin/Globulin Ratio 01/21/17 05:40 WBC RBC Hgb Hct MCV MCH MCHC RDW Plt Count MPV Gran % Lymphocytes % Monocytes % Eosinophils % Basophils % PT INR Sodium 135 L Potassium 4.0 Chloride 101 Carbon Dioxide 28.4 Anion Gap 5.6 L BUN 23 H Creatinine 1.2 Estimated GFR > 60 Random Glucose 86 Calcium 8.4 L Total Bilirubin 0.41 AST 13 L ALT 21 Alkaline Phosphatase 68 Total Protein 6.3 Albumin 3.1 L Globulin 3.2 Albumin/Globulin Ratio 1.0 L DVT/PE Assessment - Risk for VTE Risk for VTE: No Risk Level: High Risk Assessment Date: 01/19/17 Risk Assessment Time: 21:25 VTE Orders Placed or Will Be Placed: Yes - Active Medicaitons Current Medications: Current Medications Albuterol Sulfate () 2.5 mg INH RESP.Q2H PRN PRN Reason: DIFFICULTY IN BREATHING Last Admin: 01/19/17 08:43 Dose: 2.5 mg Amlodipine Besylate (Norvasc) 10 mg PO DAILY [facility] Last Admin: 01/20/17 11:58 Dose: Not Given Aspirin (Ecotrin (Ec)) 81 mg PO DAILY [facility] Last Admin: 01/20/17 10:51 Dose: 81 mg Carvedilol (Coreg) 12.5 mg PO BID [facility] Furosemide (Lasix Iv) 20 mg IVP BIDDIUR [facility] Last Admin: 01/20/17 17:02 Dose: 20 mg Gabapentin (Neurontin) 900 mg PO BID [facility] Last Admin: 01/20/17 21:18 Dose: 900 mg Levofloxacin/Dextrose (Levaquin 750mg Ivpb) 750 mg in 150 mls @ 125 mls/hr IVPB Q24H [facility] Stop: 01/25/17 18:16 Last Infusion: 01/20/17 20:35 Dose: Infused Lamotrigine (Lamictal) 25 mg PO BID [facility] Last Admin: 01/20/17 21:18 Dose: 25 mg Lisinopril (Zestril) 40 mg PO DAILY [facility] Last Admin: 01/20/17 11:57 Dose: 40 mg Warfarin Sodium (Coumadin) 5 mg PO 1800 [facility] Last Admin: 01/20/17 17:02 Dose: 5 mg Warfarin Sodium (Coumadin) 1 mg PO 1800 [facility] Last Admin: 01/20/17 17:03 Dose: 1 mg AMI Plan - Labs Result Diagrams: 01/21/17 05:40 01/21/17 05:40
[2017-01-21] MEDS: ASPIRIN 81 MG TABEC PO SCH (11:10)
[2017-01-21] MEDS: GUAIFENESIN 1,200 MG TABLET PO SCH ×2 (11:14→22:02)
[2017-01-21] MEDS: LISINOPRIL 20 MG TABLET PO SCH (11:14)
[2017-01-21] MEDS: LAMOTRIGINE 100 MG TABLET PO SCH ×2 (11:15→21:59)
[2017-01-21] MEDS: GABAPENTIN 300 MG CAPSULE PO SCH ×2 (11:16→22:02)
[2017-01-21] MEDS: FUROSEMIDE IV 20MG/2ML VIAL IVP SCH ×2 (11:17→11:27)
[2017-01-21] MEDS: AMLODIPINE BESYLATE 5MG TAB PO SCH (11:17)
[2017-01-21] MEDS: LEVOFLOXACIN/D5W 750 MG/150 ML BAG IVPB SCH (18:37)
[2017-01-21] MEDS: WARFARIN 5 MG TAB PO SCH (19:02)
[2017-01-21] MEDS: WARFARIN 1 MG TABLET PO SCH (19:03)
[2017-01-21] MEDS ORDERED: CARVEDILOL 3.125 MG TABLET PO SCH (22:00)
--- NOTE | 2017-01-21 22:22 | RADIOLOGY REPORT ---
EXAM: CHEST 2 VIEWS HISTORY: SHORTNESS OF BREATH AND CHF. TECHNIQUE: PA and lateral upright views of the chest were obtained. COMPARISON: 01/18/17. FINDINGS: The heart is mildly enlarged. There is mild pulmonary vascular congestion. Mild interstitial infiltrates are present within the mid and lower lung mota and are not significantly different when compared to the prior study. There are tiny bilateral pleural effusions, which appear slightly smaller in size. There is faint nodularity at the left lung base, which appears similar to the prior study. This may represent a nipple shadow. There are no new abnormalities. The bones appear intact. IMPRESSION: 1. PERSISTENT CARDIOMEGALY WITH MILD VASCULAR CONGESTION AND INTERSTITIAL INFILTRATES, WHICH ARE NOT SIGNIFICANTLY DIFFERENT FROM THE PRIOR STUDY. 2. TINY BILATERAL PLEURAL EFFUSIONS, WHICH HAVE DECREASED FROM THE PRIOR STUDY. 3. NO NEW ABNORMALITIES. JOB NUMBER: [id number] MTDD
--- NOTE | 2017-01-22 00:59 | CT ANGIOGRAM REPORT ---
EXAM: CT ANGIOGRAM CHEST CTA w contrast HISTORY: DIFFICULTY BREATHING. TECHNIQUE: CT angiography of the thorax is performed following intravenous contrast administration. 100 mL of Omnipaque-350 contrast are used for this examination. Coronal and sagittal postprocessed MIP images are performed on an independent workstation as part of this examination. COMPARISON: Chest x-ray 01/20/17. FINDINGS: No pulmonary emboli identified. No aortic aneurysm or aortic dissection. There are atherosclerotic changes in the abdominal aorta. There are moderate-sized bilateral pleural effusions and there are atelectatic changes at the lung bases, likely due to compressive atelectasis. There is a focal area of opacity in the lateral mid left lung measuring 1.8 x 1.1 cm in size. This may represent a lung mass or nodule. Focal area of inflammation would be difficult to exclude. There is an area of ground-glass opacity in the right upper lung anteriorly measuring 1.1 x 1.3 cm in size. There are several enlarged mediastinal lymph nodes. A lymph node in the subcarinal region measures 2.1 x 2 cm in size. A lymph node in the AP window region measures 2.4 x 2.1 cm. A lymph node in the right pretracheal region is 2.2 x 1.5 cm. An additional lymph node in the right pretracheal region is 1.1 x 1.2 cm. Other smaller lymph nodes are present as well. Mildly enlarged hilar lymph nodes are seen bilaterally. There are coronary artery calcifications present. IMPRESSION: 1. NO PULMONARY EMBOLI ARE SEEN. NO AORTIC ANEURYSM OR AORTIC DISSECTION. 2. THERE ARE MODERATE-SIZED BILATERAL PLEURAL EFFUSIONS AND BIBASILAR ATELECTASIS. THIS MAY BE THE RESULT OF CONGESTIVE FAILURE. 3. A 1.8 X 1.1 CM FOCAL OPACITY IN THE LATERAL LEFT MID LUNG MAY REPRESENT A LUNG NODULE. THIS COULD REPRESENT A MALIGNANT PROCESS. INFLAMMATORY LESION CAN T BE EXCLUDED. SHORT-TERM FOLLOW-UP CT IN ABOUT FOUR TO [id number] IS SUGGESTED. IF THIS DOES NOT RESOLVE, BIOPSY IS SUGGESTED. 4. ENLARGED MEDIASTINAL AND HILAR LYMPH NODES ARE PRESENT, NONSPECIFIC. 5. FOCAL AREA OF GROUND-GLASS OPACITY IN THE ANTERIOR RIGHT UPPER LUNG CAN ALSO BE FOLLOWED ON FOLLOW-UP EXAM. JOB NUMBER: [id number] [employer]
--- NOTE | 2017-01-22 07:15 | Discharge Summary ---
Providers Discharge Summary Date: 01/22/17 Date of admission: 01/19/17 09:40 Attending physician: AISHA KNIGHT Primary care physician: JULIET MARSHALL D.O. Physical Exam - Vital Signs Vital Signs: Vital Signs - Last 24 Hrs Temp Pulse Pulse Resp BP BP Pulse Ox 01/22/17 06:00 99.0 F 61 18 131/73 95 01/22/17 02:00 98.5 F 61 16 115/62 95 01/21/17 22:00 97.6 F 67 18 134/66 96 01/21/17 20:41 18 01/21/17 18:00 97.6 F 66 16 146/72 96 01/21/17 14:00 98.4 F 69 18 141/73 96 01/21/17 10:33 44 L 16 95 01/21/17 10:00 98 F 66 16 154/66 98 01/21/17 09:00 47 L 20 - General General Appearance: Alert, Oriented x3, Cooperative, No acute distress Limitations: No limitations - Head Head exam: Atraumatic, Normocephalic, Normal inspection Head exam detail: negative: Abrasion, Contusion, Santillan's sign, General tenderness, Hematoma, Laceration - Eye Eye exam: Normal appearance. negative: Conjunctival injection, Periorbital swelling, Periorbital tenderness, Scleral icterus - ENT Ear exam: negative: Auricular hematoma, Auricular trauma Nasal Exam: negative: Active bleeding, Discharge, Dried blood, Foreign body Mouth exam: negative: Drooling, Laceration, Muffled voice, Tongue elevation - Neck Neck exam: Normal inspection. negative: Meningismus, Tenderness - Respiratory Respiratory exam: Decreased breath sounds (throughout; no focal findings). negative: Rales, Respiratory distress, Rhonchi, Stridor - Cardiovascular Cardiovascular Exam: Bradycardia, Irregular rhythm - GI/Abdominal GI/Abdominal exam: Soft. negative: Rebound, Rigid, Tenderness - Rectal Rectal exam: Deferred - exam: Deferred - Extremities Extremities exam: Other (Prosthesis right BKA). negative: Calf tenderness, Pedal edema - Back Back exam: Denies: CVA tenderness (R), CVA tenderness (L) - Neurological Neurological exam: Alert, Oriented X3 - Psychiatric Psychiatric exam: Normal affect, Normal mood - Skin Skin exam: Normal color. negative: Abrasion Type of lesion: negative: abrasion Hospitalization - Hospitalization Admission Diagnosis: Acute CHF. ? CAP. Atrial Fibrillation with bradycardia - Problem List/Discharge Diagnosis (1) Shortness of breath Current Visit: Yes Status: Acute Base Code: R06.02 - SHORTNESS OF BREATH Comment: 01/22/17- Continues to improve. did not qualify for home oxygen per respiratory therapy. CTA done 01/20/17 showed no PE, aneurysm, dissection. It did show moderate b/l pleural effusiuons with atelectasis at the bases along with a 1.8cm focal opacity in the left mid lung which could reflect mass, nodule or focal inflammatory nodule. There was mild hilar and mediastinal LAD. Patient was started on empiric therapy for CAP PNA vs copd exacerbation with levaquin 750mg q24H based on these results. WBC count continues to remain wnl and he is afebrile. -will plan to discharge home today. Patient has follow up with PCP on 01/26/17 at 2:45pm. Will have medical records fax all notes, imaging, and labs. -will send home on levaquin 500mg po daily for 5 more days -will need follow up imaging in 2-3 weeks to assess for clearing of opacity. other considerations include nodule, lung cancer. I did pastoral counselor patient x10 minutes on these imgaging findings and he understands the importance of close follow up wtih his PCP. -preliminary read on blood cultures shows no growth. -continue mucinex 1200mg po bid for 5 more days -continue incentive spirometry at home (2) CHF (congestive heart failure) Current Visit: Yes Status: Acute Discharge Diagnosis: Congestive heart failure type: unspecified congestive heart failure type Congestive heart failure chronicity: acute on chronic Qualified Code(s): I50.9 - Heart failure, unspecified Base Code: I50.9 - HEART FAILURE, UNSPECIFIED Comment: 01/22/17- Patient had recent echo with EF of 55-60% done through his chimney supervisor brick's office and repeat on 01/19/17 shows EF of 70%. CTA shows moderate b/l pleural effusions with atelectasis at the bases. BNP 2200 at admission however also has CKD stage 3. Weight down from 163 to 157. -continue co-reg 3.125mg po bid. Heart rate between 60-70bpm and blood pressure remains <140/90. Will send new script to pharmacy. -continue lisinopril 40mg daily -Will have him continue lasix 20mg po daily. potassium has been wnl without supplementation. BUN and Cr actually improved at 17/1.0. Will order repeat CMP to have done prior to his appointment on Sunday. -He will need follow up with cardiology as outpatient to follow up possible new onset CHF and to follow heart rate and blood pressure with decreased coreg dose. He has an appointment coming up in 1-2 weeks. -continue fluid restriction 2000cc daily -low sodium diet (3) Atrial fibrillation Current Visit: Yes Status: Acute Discharge Diagnosis: Atrial fibrillation type: chronic Qualified Code(s): I48.2 - Chronic atrial fibrillation Base Code: I48.91 - UNSPECIFIED ATRIAL FIBRILLATION Comment: 01/22/17- chronic atrial fibrillation with bradycardia. Patient is asymptomatic. reviewed recent notes and EKG from cardiology and no acute changes. -will dc home on co-reg at 3.125mg po bid with heart rate improved to 60-70bpm. 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 He is currently therapeutic on coumadin -edmund continue home coumadin dosing (5) Full code status Current Visit: Yes Status: Acute Base Code: Z78.9 - OTHER SPECIFIED HEALTH STATUS Comment: 01/22/17- patient is full code - Hospitalization Course Disposition: Home, Self-Care Hospital Course: 81yo male with CC of difficulty in breathing. 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 Patient presented to the ED after several days of progressive worsening of his shortness of breath. States he had been getting progressively short of breath with activity over the past few months. Was seen by his chimney supervisor brick last week and had echo and nuclear stress tests done. He was found to be in atrial fibrillation at that appointment with ventricular rates around 44bpm. He had had previous cardioversion many years ago. According to progress notes, the plan was to continue rate control with current medication and fdc anticoagulation with coumadin and if in persistent afib he would undergo another cardioversion. While in the ED, patient was found to have oxygen saturation of 88% on room air. His EKG showed afib wtih rates of 51 and nonspecific intraventricular block. This was similar to findings from previous EKG done at cardiologists office. He had CXR which showed new, bilateral pleural effusions with pulmonary edema suggestive of mild CHF. Additionally noted to have retrocardiac airspace disease that was likely atelectasis. His WBC count was within normal and he was afebrile. oxygen improved with 2L via [place] and he was admitted for new onset CHF. 01/19/17- Patient states he is feeling a little less short of breath while on oxygen via [place]. He says he did urinate quite a bit after receiving 40mg of lasix in the ED. He denies any chest pain, light-headedness, fatigue, confusion, headache or weakness. He states he has never been tested for COPD but did smoke a pack a day for at least 35 years. He denies any recent fevers, chills, night sweats. Says he has been coughing some but only at night. He says during the day he has not had any cough or chest congestion. No one around him has been sick either. he denies lower extremity edema in the left and has BKA on the right. 01/20/17- Patient states he is feeling about the same as yesterday. Having intermittent shortness of breath worse with exertion. He says he has been urinating frequently with the lasix. No swelling in the left lower extremity. He does admit he is coughing a little more today and has brought some "phlegm" up that is thick and yellow. Denies fever but says he has just felt fatigued for the past few months. No chest pain, light-headedness or dizziness. 01/21/17- Patient states he is feeling a little better than yesterday. Says he is not feeling as short of breath. Respiratory decreased his supplemental oxygen to 1L and he has continued to do well at that rate. He did take a walk down the [place] at 2L and oxygen saturation remained 97% throughout. Says he was able to take a shower without worsening SOB. he is still coughing up some thick , yellow sputum. he denies fevers, chills, chest pain. His appetite has been good and energy level has improved. 01/22/17- Patient states he is feeling very well today. He is not feeling short of breath. He was able to walk the hallways without supplemental oxygen and did not qualify for home oxygen. Says he is still coughing up thick yellow sputum but with less frequency. Appetite is back to normal and feels like he has more energy. He denies heart palpitations, chest pain, fevers. He is feeling ready to go home today. pcp: lauro cardiology: john Dejesus cardiology Procedures: Imaging and X-Rays 01/20/17 09:10 CHEST 2 VIEWS [RAD] Stat 01/20/17 12:01 CHEST CTA w contrast [CTA] Stat Cardiology Procedures 01/19/17 16:19 EKG NOW Abnormal Labs: Abnormal Lab Results 01/20/17 01/20/17 01/20/17 Range/Units 05:55 05:55 17:50 RBC 3.41 L (4.40-5.70) M/uL Hgb 10.8 L (14.0-18.0) gm/dl Hct 31.6 L (42.0-52.0) % MPV 10.9 H (7.4-10.4) fl Lymphocytes % 14.8 L (16-45) % Monocytes % 9.6 H (0-9) % PT 32.8 H (9.5-12.1) SECONDS Sodium 133 L (136-145) mmol/L Anion Gap 6.8 L (7-16) BUN 32 H (9-20) mg/dL Creatinine 1.4 H (0.66-1.25) mg/dL Calcium (8.5-10.1) mg/dL AST 13 L (17-59) U/L ALT 20 L (21-72) U/L Albumin 3.2 L (3.5-5.0) gm/dL Albumin/Globulin Ratio 1.0 L (1.1-1.8) 01/20/17 01/21/17 01/21/17 Range/Units 17:50 05:40 05:40 RBC 3.51 L (4.40-5.70) M/uL Hgb 11.0 L (14.0-18.0) gm/dl Hct 33.1 L (42.0-52.0) % MPV 10.8 H (7.4-10.4) fl Lymphocytes % 12.4 L (16-45) % Monocytes % 11.6 H (0-9) % PT (9.5-12.1) SECONDS Sodium 135 L (136-145) mmol/L Anion Gap 5.6 L (7-16) BUN 28 H 23 H (9-20) mg/dL Creatinine (0.66-1.25) mg/dL Calcium 8.4 L (8.5-10.1) mg/dL AST 13 L (17-59) U/L ALT (21-72) U/L Albumin 3.1 L (3.5-5.0) gm/dL Albumin/Globulin Ratio 1.0 L (1.1-1.8) Condition at Discharge: (2) Stable Discharge Medications - Discharge Medications Prescriptions: Carvedilol [Coreg] 3.125 mg PO BID #60 tab Furosemide [Lasix] 20 mg PO DAILY #30 tab Guaifenesin [Mucinex] 1,200 mg PO BID #10 tab.er.12h Levofloxacin [Levaquin Tab] 500 mg PO DAILY #5 tab Home Medications: Ambulatory Orders Albuterol Sulfate [Ventolin Hfa] 1 - 2 puff IH .EVERY 4-6 HOURS PRN 01/18/17 [ Last Taken 01/18/17] Amlodipine Besylate [Norvasc] 10 mg PO DAILY 01/18/17 [Last Taken 01/18/17] Aspirin [Aspirin EC] 81 mg PO DAILY 01/18/17 [Last Taken Unknown] Gabapentin [Neurontin] 900 mg PO BID 01/18/17 [Last Taken 01/18/17] Lamotrigine 25 mg PO BID 01/18/17 [Last Taken 01/18/17] Lisinopril 40 mg PO DAILY 01/18/17 [Last Taken 01/18/17] Warfarin Sodium [Coumadin] 6 mg PO 1800 01/18/17 [Last Taken 01/17/17] Carvedilol [Coreg] 3.125 mg PO BID #60 tab 01/22/17 [Last Taken Unknown] Furosemide [Lasix] 20 mg PO DAILY #30 tab 01/22/17 [Last Taken Unknown] Guaifenesin [Mucinex] 1,200 mg PO BID #10 tab.er.12h 01/22/17 [Last Taken Unknown] Levofloxacin [Levaquin Tab] 500 mg PO DAILY #5 tab 01/22/17 [Last Taken Unknown] Discharge Plan - Discharge Instructions Activity at Discharge: Resume Usual Activities As Tolerated Diet at Discharge: Low Salt Diet Additional Instructions: Please follow up with Dr. Marshall on 01/26/17 at 2:45 pm Stop coreg 25mg twice daily and start coreg 3.125mg by mouth twice daily Continue lasix 20mg by mouth daily Continue levaquin 500mg by mouth daily for 5 more days continue mucinex 1200mg by mouth twice daily for 5 more days Continue to use the incentive spirometer at least 10 times daily May use your ventolin inhaler with spacer 2 puffs up to every 4 hours as needed for shortness of breath. Please have INR and labs drawn Sunday prior to your follow up appointment with Dr. Marshall. Please call back with any questions or concerns Return to ED at any time for new/worsening symptoms
[2017-01-22 07:39] LABS: BASO % 0.1 % (0-6); EOS % 2.2 % (0-6); GRAN % 72.5 % (47-80); HEMOGLOBIN 11.3 gm/dl (14.0-18.0); LYMPH % 10.3 % (16-45); MEAN CORPUSCULAR HGB CONC 33.2 g/dl (32-36); MEAN PLATELET VOLUME 10.2 fl (7.4-10.4); MONO % 14.9 % (0-9); PLATELET COUNT 201 K/uL (130-400); RED BLOOD COUNT 3.58 M/uL (4.40-5.70); RED CELL DISTRIBUTION WIDTH 14.2 % (11.5-14.5); WHITE BLOOD COUNT W/O DIFF 9.6 K/uL (4.2-12.2)
[2017-01-22 07:41] LABS: MEAN CORPUSCULAR HEMOGLOBIN 31.5 pg (27-33)
[2017-01-22 07:44] LABS: INR 2.31; PROTHROMBIN TIME (PATIENT) 26.1 SECONDS (9.5-12.1)
[2017-01-22 07:45] LABS: ALBUMIN 3.3 gm/dL (3.5-5.0); ALKALINE PHOSPHATASE 76 U/L (38-126); ALT/SGPT 20 U/L (21-72); ANION GAP 7.4 (7-16); AST/SGOT 15 U/L (17-59); BILIRUBIN,TOTAL 0.94 mg/dL (0.2-1.3); BLOOD UREA NITROGEN 17 mg/dL (9-20); CARBON DIOXIDE 28.6 mmol/L (22-30); EST GLOMERULAR FILTRATION RATE > 60 ml/min; GLUCOSE,RANDOM 91 mg/dL (70-110); TOTAL PROTEIN 6.6 gm/dL (6.3-8.2)
[2017-01-22] MEDS ORDERED: FUROSEMIDE 20 MG TABLET PO SCH (10:00)
[2017-01-22] MEDS: ASPIRIN 81 MG TABEC PO SCH (11:17)
[2017-01-22] MEDS: LISINOPRIL 20 MG TABLET PO SCH (11:17)
[2017-01-22] MEDS: AMLODIPINE BESYLATE 5MG TAB PO SCH (11:17)
[2017-01-22] MEDS: LAMOTRIGINE 100 MG TABLET PO SCH (11:20)
== END 2017-01-22 11:26 | disposition home or self-care (01) | DRG 292 ==
LOC: ER 11:55 → MEDSURG 14:14 → OBSVTOIN 01-19 09:40
PROVIDERS: ADMIT Family Medicine; ATTEND Family Medicine
DX: I50.33 Acute on chronic diastolic (congestive) heart failure (principal); G40.89 Other seizures; I48.2 Chronic atrial fibrillation; I25.10 Atherosclerotic heart disease of native coronary artery without angina pectoris; Z79.01 Long term (current) use of anticoagulants; Z86.718 Personal history of other venous thrombosis and embolism; I10 Essential (primary) hypertension; R91.1 Solitary pulmonary nodule; N18.3 Chronic kidney disease, stage 3 (moderate); Z78.9 Other specified health status; Z89.511 Acquired absence of right leg below knee; I73.9 Peripheral vascular disease, unspecified; Z87.891 Personal history of nicotine dependence
CPT/HCPCS: 99285 ×2; 96374; 96375; 85025; 85610 ×2; 84484; 80053 ×2; 85027; 83880; 71020; 94640; 94760 ×2; 93005; 93010; G0378 ×10; 71275; 80048; 87040; 93306; 94010; 94620; 99223; 99233; 99239; J1940; J1956; J2930; J7613

== ENCOUNTER 2017-05-16 13:25 | Emergency (ER) | payer MEDICARE ==
--- NOTE | 2017-05-16 13:52 | Emergency Department Record ---
History of Present Illness - General Chief Complaint: Neck Injury/Pain Stated Complaint: NECK PAIN/KNOT LT SIDE OF NECK Time Seen by Provider: 05/16/17 13:43 Source: Patient Mode of Arrival: Ambulatory Limitations: No limitations - History of Present Illness Initial Comments: The patient is here due to a 2-3 day hx of posterior neck pain. It started on the L and now includes the R back of the neck. It is a sharp stabbing pain that increases with any neck movement or rotation. The patient has no pain when not moving. He denies any ST, dysphagia, headache, cough, CP, fever, SOB, back pain , arm or leg numbness or weakness. He also has had no visual changes or balance issues. The patient denies any fall or trauma and has no hx of similar issues. MD Complaint: Neck pain Onset/Timin -: Days(s) Place: Home Severity scale (1-10): 10 Quality: Sharp Improves With: Remaining still Worsens With: Movement of neck Associated Symptoms: Other Treatments Prior to Arrival: Acetaminophen Treatment Prior to Arrival Comment:: Not helpful - Related Data Home Medications Medication Instructions Recorded Confirmed Last Taken Rivaroxaban [Xarelto] 15 mg PO DAILY 05/16/17 05/16/17 05/16/17 Previous Rx's Medication Instructions Recorded Carvedilol [Coreg] 3.125 mg PO BID #60 tab 01/22/17 Furosemide [Lasix] 20 mg PO DAILY #30 tab 01/22/17 Hydrocodone/Acetaminophen [[place] 1 each PO QID #15 tablet 05/16/17 5-325 Tablet] Allergies Allergy/AdvReac Type Severity Reaction Status Date / Time No Known Drug Allergies Allergy Verified 05/16/17 13:33 Travel Screening - Travel/Exposure Within Last 30 Days Have you traveled within the last 30 days?: No - Travel/Exposure Within Last Year Have you traveled outside the [place] 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 Dejesus - NEURO Hx Neuro Disorders: Yes Hx Seizures: Yes (years ago unkown etiology still on meds) Comment:: spot on brain stable for several years - GI Hx GI Disorders: No - Hx Genitourinary Disorders: No - ENDOCRINE Hx Endocrine Disorders: No - MUSCULOSKELETAL Hx Musculoskeletal Disorders: Yes Hx Arthritis: Yes (mild) - PSYCH Hx Psych Problems: No - HEMATOLOGY/ONCOLOGY Hx Hematology/Oncology Disorders: Yes Hx Bruising: Yes (coumadin tx) Hx Clotting Problems: Yes (coumadin tx) Family Medical History Any Significant Family History?: Yes Hx Cancer: Brother/Sister Hx Dementia: Mother, Brother/Sister Hx Heart Disease: Father, Brother/Sister Physical Exam - General General Appearance: Alert, Oriented x3, Cooperative, No acute distress - Head Head exam: Atraumatic, Normocephalic, Normal inspection - Eye Eye exam: Normal appearance, PERRL - ENT Throat exam: Normal inspection. negative: Tonsillar erythema, Tonsillar exudate - Neck Neck exam: Normal inspection, Lymphadenopathy (L side of the neck.), Tenderness (The posterior cervical muscles are very tender bilaterally and palpation exactly reproduces the pain.). negative: Full ROM, Meningismus - Respiratory Respiratory exam: Normal lung sounds bilaterally. negative: Respiratory distress - Cardiovascular Cardiovascular Exam: Irregular rhythm. negative: Normal rhythm - Extremities Extremities exam: Normal inspection, Full ROM, Normal capillary refill. negative: Tenderness - Back Back exam: Reports: Normal inspection, Full ROM. Denies: Muscle spasm, Rash noted, Tenderness - Neurological Neurological exam: Alert, Normal gait, Oriented X3. negative: Abnormal gait, Altered, Motor sensory deficit Course Vital Signs 05/16/17 13:37 Temperature 97.8 F Pulse Rate 71 Respiratory 18 Rate Blood Pressure 136/79 Pulse Ox 97 - Reevaluation(s) Reevaluation #1: The patient is doing better. His pain is improved. I did discuss the xrays and the old CT from January of this year. The patient is to see his PCP to get another CT ordered. He is to see his PCP for recheck and will return to the ER if not better in 3 days. 05/16/17 14:45 Medical Decision Making - Data Complexity MDM Data: Labs Ordered and/or Reviewed, X-Ray Ordered and/or Reviewed - Lab Data Result diagrams: 05/16/17 13:55 05/16/17 13:55 - Radiology Data Radiology results: Report reviewed (CXR: CMG, COPD with mild PVC and trace effusions. CSpine: Osteopenia, degenerative changes.) Disposition Disposition: Discharge Clinical Impression: Cervical paraspinal muscle spasm Disposition: Home, Self-Care Condition: (2) Stable Instructions: Cervical Sprain (ED) Additional Instructions: Please take the [place] as directed. Please see your PCP for recheck and discuss ordering the chest CT per the CT in January of this year. Please return to the ER for any increased pain, fever, arm or leg numbness, tingling or weakness. Prescriptions: Hydrocodone/Acetaminophen [[place] 5-325 Tablet] 1 each PO QID #15 tablet Forms: Patient Portal Access Time of Disposition: 14:48 Quality - Quality Measures Quality Measures: N/A - Blood Pressure Screening View Details: Yes Does Patient Have Any of the Following: No, Active Dx of HTN Blood Pressure Classification: Hypertensive Reading Systolic Measurement: 152 Diastolic Measurement: 77 Screening for High Blood Pressure: Patient Exclusion, Hx of HTN [[id number]]
[2017-05-16] MEDS: ACETAMINOPHEN 325 MG TAB PO ONE (13:54)
[2017-05-16 14:06] LABS: BASO % 0.1 % (0-6); EOS % 5.5 % (0-6); GRAN % 69.2 % (47-80); HEMATOCRIT 41.1 % (42.0-52.0); HEMOGLOBIN 13.1 gm/dl (14.0-18.0); LYMPH % 13.2 % (16-45); MEAN CELL VOLUME 89.3 fl (81-97); MEAN CORPUSCULAR HGB CONC 31.9 g/dl (32-36); MEAN PLATELET VOLUME 9.9 fl (7.4-10.4); PLATELET COUNT 314 K/uL (130-400); RED CELL DISTRIBUTION WIDTH 17.2 % (11.5-14.5); WHITE BLOOD COUNT W/O DIFF 9.1 K/uL (4.2-12.2)
[2017-05-16 14:10] LABS: MEAN CORPUSCULAR HEMOGLOBIN 28.4 pg (27-33)
[2017-05-16 14:19] LABS: INR 1.12; PROTHROMBIN TIME (PATIENT) 12.1 SECONDS (9.5-12.1)
[2017-05-16 14:26] LABS: ALB/GLOB RATIO 0.9 (1.1-1.8); ALBUMIN 3.6 g/dL (4.0-5.0); ALKALINE PHOSPHATASE 112 U/L (40-129); ALT/SGPT 11 U/L (<41); AST/SGOT 18 U/L (10.0-50.0); BLOOD UREA NITROGEN 12 mg/dL (8-23); CREATININE 0.9 mg/dL (0.7-1.2); EST GLOMERULAR FILTRATION RATE > 60 mL/min; GLUCOSE,RANDOM 101 mg/dL (74-109); TOTAL PROTEIN 7.6 g/dL (6.6-8.7)
--- NOTE | 2017-05-17 09:40 | RADIOLOGY REPORT ---
EXAM: CERVICAL SPINE HISTORY: NECK PAIN. TECHNIQUE: Five views of the cervical spine were obtained. Comparison: None. FINDINGS: Osteopenia. The vertebral body height and alignment is preserved. Negative for fracture/compression deformity or subluxation. Soft tissue calcifications project posteriorly. Minor degenerative change throughout the cervical spine. The atlantoaxial space is preserved. The lateral masses are not displaced. IMPRESSION: NEGATIVE FOR ACUTE CERVICAL SPINE ABNORMALITY. OSTEOPENIA WITH MULTILEVEL DEGENERATIVE CHANGE. JOB NUMBER: [id number] [facility]
--- NOTE | 2017-05-17 09:42 | RADIOLOGY REPORT ---
EXAM: CHEST, TWO VIEWS HISTORY: CHEST PAIN. TECHNIQUE: Frontal and lateral views of the chest were obtained. Comparison: 01/20/17 chest. FINDINGS: Stable cardiomegaly. Atheromatous change of the thoracic aorta. Osteopenia with COPD. Mild pulmonary vascular congestion with small bilateral effusions. No pneumothorax. IMPRESSION: 1. CARDIOMEGALY. COPD. 2. MILD PULMONARY VASCULAR CONGESTION. SMALL BILATERAL EFFUSIONS. JOB NUMBER: [id number] [facility]
== END 2017-05-16 14:55 | disposition home or self-care (01) ==
LOC: ER 13:25
DX: M62.838 Other muscle spasm (principal); J44.9 Chronic obstructive pulmonary disease, unspecified; I10 Essential (primary) hypertension; Z86.718 Personal history of other venous thrombosis and embolism; Z79.01 Long term (current) use of anticoagulants; Z87.891 Personal history of nicotine dependence
CPT/HCPCS: 71020; 72050; 80053; 85025; 85610; 85730; 99283; 99284